=== PATIENT | male | born 1975 ===

== ENCOUNTER 2018-05-10 09:45 | Emergency (ER) | payer MEDICARE, OTHER ==
[2018-05-10] MEDS ORDERED: Nitroglycerin 2% Ointment 1 INCH/1 GM Packet TOP SCH (12:15)
--- NOTE | 2018-05-10 13:09 | RAD ---
FRONTAL VIEW CHEST: INDICATION: Chest pain. FINDINGS: Cardiac silhouette is prominent as is pulmonary vasculature. There is no effusion or discrete pneumo thorax. No lobar consolidation. IMPRESSION: Findings may relate to bronchiolitis or perihilar edema. Recommend clinical correlation. Followup i maging with 2-view chest may prove useful for continued assessment. POS: [facility]
[2018-05-10 13:25] LABS: Hemoglobin 14.4 g/dL (14.0-18.0); Mean Corpuscular HGB CONC 33.5 g/dL (32.0-36.0); Mean Corpuscular Hemoglobin 32.6 pg (27.0-31.0); Mean Corpuscular Volume 97.2 fL (78.0-98.0); Platelet Count 289 thou/uL (130-400); Red Blood Cell (RBC) Count 4.43 mill/uL (4.70-6.10); White Blood Cell (WBC) Count 4.8 thou/uL (4.8-10.8)
[2018-05-10 13:42] LABS: ALT (SGPT) 18 U/L (8-55); AST (SGOT) 20 U/L (5-34); Albumin 4.5 g/dL (3.5-5.0); Alkaline Phosphatase 69 U/L (40-150); Anion Gap 11 mmol/L (10-20); BUN (Urea Nitrogen) 14 mg/dL (8.9-20.6); Bilirubin, Total 0.3 mg/dL (0.2-1.2); CK (CPK) 452 U/L (30-200); Calc. Creatinine Clearance 0 mL/min (70-130); Calcium 9.5 mg/dL (7.8-10.44); Carbon Dioxide 25 mmol/L (22-29); Chloride 105 mmol/L (98-107); Estimated GFR-MDRD Greater than 90; Glucose 95 mg/dL (70-105); Lipase 20 U/L (8-78); Protein, Total 7.5 g/dL (6.0-8.3); Sodium 137 mmol/L (136-145)
[2018-05-10 13:43] LABS: CKMB 5.8 ng/mL (0-6.6); Troponin I Less than 0.010 ng/mL (< 0.028)
[2018-05-10 14:52] LABS: Troponin I Less than 0.010 ng/mL (< 0.028)
== END 2018-05-10 14:50 | disposition home or self-care (01) ==
LOC: ERS 09:45
DX: J06.9 Acute upper respiratory infection, unspecified (principal); J45.909 Unspecified asthma, uncomplicated
CPT/HCPCS: 71045; 80053; 82550; 82553; 83690; 84484; 85027; 93005; 99284